=== PATIENT | male | born 1955 | race Caucasian/White ===

== ENCOUNTER 2022-09-07 08:32 | Outpatient (CLI) | payer MEDICARE, OTHER | END 2022-09-07 08:33 | disposition home or self-care (01) | LOC: CSHWCC 08:32 | PROVIDERS: ATTEND Nurse Practitioner Family | DX: L89.891 Pressure ulcer of other site, stage 1 (principal); E11.621 Type 2 diabetes mellitus with foot ulcer; L97.511 Non-pressure chronic ulcer of other part of right foot limited to breakdown of skin | CPT/HCPCS: 99205; G0463 ==

== ENCOUNTER 2024-04-21 07:41 | Outpatient (CLI) | payer MEDICARE | END 2024-04-21 07:42 | disposition home or self-care (01) | LOC: CSHMRI 07:41 | PROVIDERS: ATTEND Family Medicine | DX: M47.22 Other spondylosis with radiculopathy, cervical region (principal); M48.02 Spinal stenosis, cervical region; M48.03 Spinal stenosis, cervicothoracic region | CPT/HCPCS: 72141 ==